=== PATIENT | female | born 1990 | race Caucasian/White ===

== ENCOUNTER → 2016-10-20 | Outpatient (CLI) | payer OTHER ==
[2016-10-20 10:57] LABS: CHCM 33.3; HCT 38.3 % (34.0-46.0); HDW 2.09; HGB 12.8 gm/dL (11.4-16.0); MCH 32.4 pg (25.0-35.0); MCHC 33.5 g/dL (31.0-37.0); MCV 96.5 fL (80.0-100.0); Mean Platelet Volume 7.2; RBC 3.97 m/uL (3.80-5.40); RDW 12.1 % (11.5-15.5); WBC 11.2 k/uL (3.8-10.6)
[2016-10-20 11:14] LABS: Glucose 87 mg/dL (74-99); Non-African American GFR(MDRD) >60 (>60 ml/min/1.73 sqM)
[2016-10-20 11:40] LABS: Hepatitis B Surface Ag Index 0.05
[2016-10-21 07:34] LABS: HIV-1/HIV-2 Ab Screen NONREAC (NON REAC)
== END | disposition home or self-care (01) ==
LOC: LABWHC1 10:06
PROVIDERS: ATTEND Obstetrics & Gynecology
DX: Z34.02 Encounter for supervision of normal first pregnancy, second trimester (principal); Z3A.00 Weeks of gestation of pregnancy not specified
CPT/HCPCS: 36415; 82565; 82947; 85027; 86762; 86780; 86850; 86900; 86901; 87340; 87389

== ENCOUNTER → 2016-12-11 | Outpatient (CLI) | payer OTHER ==
[2016-12-11 10:46] LABS: CH 32.9; CHCM 32.8; HCT 37.3 % (34.0-46.0); HDW 2.07; MCH 32.2 pg (25.0-35.0); MCHC 32.1 g/dL (31.0-37.0); MCV 100.5 fL (80.0-100.0); Mean Platelet Volume 7.4; RBC 3.71 m/uL (3.80-5.40); RDW 12.6 % (11.5-15.5); WBC 10.9 k/uL (3.8-10.6)
== END | disposition home or self-care (01) ==
LOC: LABWHC1 09:33
PROVIDERS: ATTEND Obstetrics & Gynecology
DX: Z34.02 Encounter for supervision of normal first pregnancy, second trimester (principal); Z3A.00 Weeks of gestation of pregnancy not specified
CPT/HCPCS: 36415; 82950; 85027

== ENCOUNTER 2017-03-17 15:32 | Inpatient (IN) | payer OTHER ==
[2017-03-17 16:10] LABS: Basophils % (A) 0 %; CH 33.9; CHCM 33.3; Eosinophils # (A) 0.2 k/uL (0-0.7); Eosinophils % (A) 1 %; HCT 42.1 % (34.0-46.0); HDW 2.03; HGB 13.9 gm/dL (11.4-16.0); Luc # (Auto) 0.21; Luc % (Auto) 2; Lymphocytes # (A) 2.8 k/uL (1.0-4.8); Lymphocytes % (A) 20 %; MCH 33.8 pg (25.0-35.0); MCHC 33.1 g/dL (31.0-37.0); MCV 102.1 fL (80.0-100.0); Macrocytosis Slight; Mean Platelet Volume 10.3; Monocytes # (A) 0.7 k/uL (0-1.0); Monocytes % (A) 5 %; Neutrophils # (A) 10.1 k/uL (1.3-7.7); Neutrophils % (A) 72 %; RBC 4.13 m/uL (3.80-5.40); RDW 13.3 % (11.5-15.5); WBC (Perox) 13.69
[2017-03-17 16:12] LABS: Appearance,Urine Cloudy (Clear); Bacteria,Urine Rare /hpf; Bilirubin,Urine Negative (Negative); Glucose,Urine (UA) Negative (Negative); Ketones,Urine Negative (Negative); Leukocyte Esterase,Urine Large (Negative); Mucus,Urine Rare /hpf; Nitrite,Urine Negative (Negative); PH, Urine 6.5 (5.0-8.0); Particle Count 17625; Protein,Urine Negative (Negative); RBC,Urine 6 /hpf (0-5); Specific Gravity,Urine 1.006 (1.001-1.035); Squamous Epithelial Cell,Urine 25 /hpf (0-4); UA Billing (MACRO vs. MICRO) MICRO; Urobilinogen,Urine <2.0 mg/dL (<2.0); WBC,Urine 102 /hpf (0-5)
[2017-03-17 16:25] LABS: ALT 26 U/L (9-52); AST 22 U/L (14-36); Blood Urea Nitrogen 11 mg/dL (7-17); LDH 409 U/L (313-618); Non-African American GFR(MDRD) >60 (>60 ml/min/1.73 sqM); Uric Acid 6.3 mg/dL (3.7-7.4)
[2017-03-17] MEDS ORDERED: DINOPROSTONE 10 MG INSERT.ER VAGINAL ONE (17:42)
--- NOTE | 2017-03-17 18:22 | P.HPOB ---
History of Present Illness H&P Date: 03/17/17 Chief Complaint: Hypertension. This patient is a pleasant 26-year-old 1 para 0 female estimated date of confinement 03/15/2017 estimated gestational age 40-2/7 weeks gestation who is admitted to labor and delivery from the office with elevated blood pressure. Patient's care is per Dr. Fletcher and appears to be uncomplicated with the exception of late to seek care. Her first visit was at 15 weeks gestation. Patient also had some depression issues early in the and was set up with a counselor. Patient did have a positive HSV culture at 32 weeks and was placed on prophylactic antibiotics at 36 weeks. She denies any active outbreak since that time. Review of Systems Constitutional: Denies chills, Denies fever Ears, nose, mouth and throat: Denies headache, Denies sore throat Cardiovascular: Denies chest pain, Denies shortness of breath Respiratory: Reports as per HPI Gastrointestinal: Reports heartburn Genitourinary: Reports Menstruation: Reports amenorrhea Neurological: Denies numbness, Denies weakness Psychiatric: Reports depression Past Medical History Past Medical History: No Reported History History of Any Multi-Drug Resistant Organisms: None Reported Additional Past Surgical History / Comment(s): Patient has had eye surgery ( repair of an orbital bone after fall.) Past Anesthesia/Blood Transfusion Reactions: No Reported Reaction Past Psychological History: Depression Smoking Status: Never smoker Past Alcohol Use History: None Reported Past Drug Use History: None Reported Medications and Allergies Home Medications Medication Instructions Recorded Confirmed Type Acyclovir [Zovirax] 200 mg PO BID 03/17/17 03/17/17 History Allergies Allergy/AdvReac Type Severity Reaction Status Date / Time codeine Allergy Rash/Hives Verified 03/17/17 15:50 Exam - Vital Signs Vital signs: Intake and Output 03/17/17 03/17/17 03/17/17 06:59 14:59 22:59 Other: Weight 104.326 kg Patient Weight 03/18/17 06:59 Weight 104.326 kg - OBG Physical Exam Abdomen: bowel sounds normal, no diffuse tenderness, no bruit present, no guarding noted, no hepatomegaly, no splenomegaly, no mass Vulva: both: normal Vagina: normal moisture, no discharge Cervix: no lesion (Cervix is fingertip external os but closed internally and thick.), no discharge Uterus: enlarged (Fundal height is 40 cm as measured in the office today.) Results blood work shows she is a positive, rubella immune, RPR nonreactive, hepatitis B negative, HIV nonreactive, sounds have been normal. Group B strep was negative. Result Diagrams: 03/17/17 16:00 03/17/17 16:00 Abnormal Lab Results - Last 24 Hours (Table) 03/17/17 03/17/17 Range/Units 16:00 16:00 WBC 14.0 H (3.8-10.6) k/uL MCV 102.1 H (80.0-100.0) fL Neutrophils # 10.1 H (1.3-7.7) k/uL Urine Appearance Cloudy H (Clear) Urine Blood Small H (Negative) Ur Leukocyte Esterase Large H (Negative) Urine RBC 6 H (0-5) /hpf Urine WBC 102 H (0-5) /hpf Ur Squamous Epith Cells 25 H (0-4) /hpf Urine Bacteria Rare H (None) /hpf Urine Mucus Rare H (None) /hpf Urine Yeast (Budding) Occasional H (None) /hpf Assessment and Plan (1) Third trimester Narrative/Plan: This is a 26-year-old 1 para 0 female 40-2/7 weeks gestation with gestational hypertension. Patient is an unfavorable cervix at this time. I have recommended patient proceed with delivery based on blood pressure criteria. Plan is to place Cervidil at this time. Dr. Wheatley will proceed with the rest of the induction tomorrow. Status: Acute (2) Gestational hypertension affecting first Status: Acute
[2017-03-17] MEDS ORDERED: BUTORPHANOL 1 MG/ML 1 ML VIAL IV PRN (18:23)
[2017-03-17 19:50] VITALS: BMI 34.9
[2017-03-18] MEDS ORDERED: OXYTOCIN 10 UNIT/ML 1 ML VIAL IM PRN (05:51)
[2017-03-18] MEDS ORDERED: CARBOPROST TROMETHAMINE 250 MCG/ML 1 ML AMP IM PRN (05:51)
[2017-03-18] MEDS ORDERED: TERBUTALINE 1 MG/ML VIAL SQ PRN (05:51)
[2017-03-18] MEDS ORDERED: METHYLERGONOVINE 0.2 MG/ML 1 ML AMP IM PRN (05:51)
[2017-03-18] MEDS ORDERED: LIDOCAINE 1% (PF) 10 MG/ML (30 ML SDV) SQ PRN (05:51)
[2017-03-18] MEDS ORDERED: OXYTOCIN 20 UNITS/1000 ML NS 1,000 ML IV SCH (05:51)
[2017-03-18] MEDS: LACTATED RINGERS 1,000 ML IV SCH ×4 (06:08→16:59)
[2017-03-18 06:22] LABS: Basophils % (A) 0 %; CH 33.9; CHCM 33.5; Eosinophils # (A) 0.2 k/uL (0-0.7); Eosinophils % (A) 1 %; HCT 44.1 % (34.0-46.0); HDW 2.07; HGB 14.7 gm/dL (11.4-16.0); Luc # (Auto) 0.24; Luc % (Auto) 1; Lymphocytes # (A) 3.2 k/uL (1.0-4.8); Lymphocytes % (A) 17 %; MCH 33.9 pg (25.0-35.0); MCHC 33.4 g/dL (31.0-37.0); MCV 101.5 fL (80.0-100.0); Macrocytosis Slight; Mean Platelet Volume 9.9; Monocytes # (A) 0.7 k/uL (0-1.0); Monocytes % (A) 4 %; Neutrophils # (A) 13.9 k/uL (1.3-7.7); Neutrophils % (A) 76 %; RBC 4.34 m/uL (3.80-5.40); RDW 13.2 % (11.5-15.5); WBC 18.4 k/uL (3.8-10.6)
[2017-03-18] MEDS ORDERED: BUPIVACAINE (PF) 0.25% 30 ML VIAL ONE (09:09)
[2017-03-18] MEDS ORDERED: fentaNYL (PF) 50 MCG/ML 5 ML AMP ONE (09:09)
[2017-03-18] MEDS ORDERED: SODIUM CHLORIDE 0.9% 100 ML BAG ONE (09:09)
[2017-03-18] MEDS ORDERED: BUPIVACAINE (PF) 0.25% 25 ML, fentaNYL (PF) 200 MCG in SODIUM CHLORIDE 0.9% 71 ML EPIDURAL ONE (10:28)
[2017-03-18] MEDS ORDERED: BENZOCAINE SPRAY 57GM TOPICAL PRN (19:22)
[2017-03-18] MEDS ORDERED: diphenhydrAMINE 50 MG/ML 1 ML VIAL IVP PRN ×2 (19:22)
[2017-03-18] MEDS ORDERED: HYDROCORTISONE 2.5% RECTAL CREAM 30 GM TUBE RECTAL PRN (19:22)
[2017-03-18] MEDS ORDERED: ACETAMINOPHEN TAB 325 MG TAB PO PRN (19:22)
[2017-03-18] MEDS ORDERED: diphenhydrAMINE 50 MG CAP PO PRN (19:22)
[2017-03-18] MEDS ORDERED: SIMETHICONE 80 MG CHEWABLE PO PRN (19:22)
[2017-03-18] MEDS ORDERED: LANOLIN CREAM 5 GM TUBE TOPICAL PRN (19:22)
[2017-03-18] MEDS ORDERED: Acetaminophen-Codeine 300-30mg TAB PO PRN ×2 (19:22)
[2017-03-18] MEDS ORDERED: ZOLPIDEM 5 MG TAB PO PRN (19:22)
[2017-03-18] MEDS ORDERED: diphenhydrAMINE 25 MG CAP PO PRN (19:22)
[2017-03-18] MEDS ORDERED: WITCH HAZEL 1 EACH MED..PAD TOPICAL PRN (19:22)
--- NOTE | 2017-03-18 19:24 | P.PROBDLV ---
Vaginal Delivery Note - . Vaginal Delivery Note: Patient progressed to complete and pushed with spontaneous vaginal delivery of a viable male over a secondary midline laceration. Following delivery of the head a nuchal cord 1 was noted. During the process of trying to reduce the nuchal cord the cord actually broke therefore immediately we delivered the anterior and posterior shoulder with gentle downward upper traction followed by the remainder the baby. Once baby was delivered there was no real bleeding coming from the umbilical cord coming from the baby therefore baby was not mouth nares bulb suctioned and placed on mother's abdomen where the remainder of the cord was clamped and cut. Placenta was then delivered intact and Pitocin was added to the IV. Once this was accomplished a second degree midline laceration was repaired with 3-0 Vicryl in usual fashion following 1% Xylocaine for analgesia. There are 2 small avulsion's on both the right and left side near the urethra but these were not bleeding were left alone. scores were 8 and 9 at one and 5 minutes respectively and the weight was 9 lbs. 1 oz. Both mother and baby are currently stable findings delivery.
[2017-03-18] MEDS: SENNOSIDES-DOCUSATE SODIUM 1 EACH TAB PO SCH (22:12)
[2017-03-19] MEDS: IBUPROFEN 600 MG TAB PO PRN ×3 (05:08→17:42)
--- NOTE | 2017-03-19 07:34 | P.PNOBGVD ---
Subjective - Subjective Principal diagnosis: S/P NVD PPD #1 Interval history: Patient seen and examined. Denies nausea, vomiting, chest, shortness of breath or calf pain. No headaches or vision changes. Her blood pressures are improving. Patient reports: Reports appetite normal, Reports voiding normally, Reports pain well controlled, Reports ambulating normally : doing well Objective - Latest Vital Signs Latest vital signs: Vital Signs Temp Pulse Resp BP 03/19/17 04:00 98.4 F 76 16 109/64 03/18/17 23:56 97.9 F 94 16 145/78 03/18/17 21:18 98.4 F 89 16 136/76 03/18/17 20:48 98.6 F 99 16 140/70 03/18/17 20:18 93 16 134/72 03/18/17 20:03 98.5 F 80 16 128/68 03/18/17 19:48 98.5 F 88 16 131/68 03/18/17 19:33 92 16 125/72 03/18/17 19:18 98.2 F 96 16 124/61 Intake and Output 03/18/17 03/19/17 03/19/17 22:59 06:59 14:59 Intake Total 18.25 2000 Balance 18.25 2000 Intake: IV 800 Oxytocin 20 Units/1000 ml 800 Ns 1,000 ml @ 1 MILLIUNIT/MIN 3 mls/hr IV .Q24H HEIDY Rx#:[id number] Intake, IV Titration 18.25 Amount Oxytocin 20 Units/1000 ml 18.25 Ns 1,000 ml @ 1 MILLIUNIT/MIN 3 mls/hr IV .Q24H HEIDY Rx#:[id number] Oral 1200 Other: # Voids 1 2 - Exam Lungs: bilateral: normal Chest: Normal S1, Normal S2 Extremities: Present: normal Abdomen: Present: normal appearance, soft Uterus: Present: normal, firm Assessment and Plan (1) Gestational hypertension affecting first Current Visit: Yes Status: Acute Code(s): O13.9 - GESTATIONAL HTN W/O SIGNIFICANT PROTEINURIA, UNSP TRIMESTER SNOMED Code(s): 94418460 (2) Normal vaginal delivery Narrative/Plan: 1. Continue care and monitor blood pressures Current Visit: Yes Status: Acute Code(s): O80 - ENCOUNTER FOR FULL-TERM UNCOMPLICATED DELIVERY SNOMED Code(s): 70300304
[2017-03-19] MEDS: SENNOSIDES-DOCUSATE SODIUM 1 EACH TAB PO SCH ×2 (09:33→23:15)
[2017-03-20] MEDS: IBUPROFEN 600 MG TAB PO PRN (00:21)
[2017-03-20 01:39] VITALS: TEMP 97.7
--- NOTE | 2017-03-20 09:35 | P.DS ---
Providers Date of admission: 03/17/17 16:52 Expected date of discharge: 03/20/17 Attending physician: Shonda Fletcher Primary care physician: Stated None - Discharge Diagnosis(es) (1) Gestational hypertension affecting first Current Visit: Yes Status: Acute (2) Normal vaginal delivery Current Visit: Yes Status: Acute Hospital Course: Patient was admitted and induced for gestational hypertension. She underwent normal vaginal delivery. Her course uncomplicated. She'll be discharged home day number 2 in stable condition to follow-up with me in 6 weeks. Plan - Discharge Summary New Discharge Prescriptions: No Action Acyclovir [Zovirax] 200 mg PO BID Discharge Medication List Acyclovir [Zovirax] 200 mg PO BID 03/17/17 [History] Follow up Appointment(s)/Referral(s): Shonda Fletcher DO [Doctor of Osteopathic Medicine] - 6 Weeks Discharge Disposition: HOME SELF-CARE
[2017-03-20] MEDS: SENNOSIDES-DOCUSATE SODIUM 1 EACH TAB PO SCH (09:46)
[2017-03-20 10:44] VITALS: BP 120/81; PULSE 76; RESP 19
== END 2017-03-20 12:00 | disposition home or self-care (01) | DRG 774 ==
LOC: FBPOP 15:32 → 4FBP 16:52
PROVIDERS: ADMIT Obstetrics & Gynecology; ATTEND Obstetrics & Gynecology
PROC: 3E033VJ Introduction of Other Hormone into Peripheral Vein, Percutaneous Approach (ICD-10-PCS; principal; 2017-03-17)
PROC: 3E0P7GC Introduction of Other Therapeutic Substance into Female Reproductive, Via Natural or Artificial Opening (ICD-10-PCS; principal; 2017-03-17)
PROC: 10907ZC Drainage of Amniotic Fluid, Therapeutic from Products of Conception, Via Natural or Artificial Opening (ICD-10-PCS; principal; 2017-03-17)
PROC: 0KQM0ZZ Repair Perineum Muscle, Open Approach (ICD-10-PCS; 2017-03-18)
PROC: 10E0XZZ Delivery of Products of Conception, External Approach (ICD-10-PCS; 2017-03-18)
DX: O13.4 Gestational [pregnancy-induced] hypertension without significant proteinuria, complicating childbirth (principal); O98.32 Other infections with a predominantly sexual mode of transmission complicating childbirth; Z37.0 Single live birth; O69.81X0 Labor and delivery complicated by cord around neck, without compression, not applicable or unspecified; O70.1 Second degree perineal laceration during delivery; A60.00 Herpesviral infection of urogenital system, unspecified; Z3A.40 40 weeks gestation of pregnancy; Z88.5 Allergy status to narcotic agent
CPT/HCPCS: 59025; 81001; 82565; 83615; 84450; 84460; 84520; 84550; 85025; 88307; 99215